=== PATIENT | female | born 1980 | race African-American/Black ===

== ENCOUNTER 2017-08-11 10:31 | Day surgery (SDC) | payer OTHER ==
[~2017-08-11 10:31] MED LIST: LACTATED RINGER'S 1,000 ML IV
[2017-08-11 12:49] LABS: ADD MAN DIFF? NO
[2017-08-11 12:55] LABS: WHITE BLOOD COUNT 7.2 10^3/ul (4.8-10.8)
[2017-08-11 12:55] LABS: BASOPHILS % 0.6 % (0.0-2.0); EOSINOPHILS # 0.1 10^3/ul (0.0-0.5); EOSINOPHILS % 0.8 % (0.0-7.0); LYMPHOCYTES # 2.2 10^3/ul (0.8-2.9); LYMPHOCYTES % 29.7 % (15.0-51.0); MEAN CORPUSCULAR HEMOGLOBIN 19.9 pg (29.0-33.0); MEAN CORPUSCULAR HGB CONC 29.2 g/dl (32.0-37.0); MEAN CORPUSCULAR VOLUME 68.2 fl (82.0-101.0); MEAN PLATELET VOLUME 10.1 fl (7.4-10.4); MONOCYTE # 0.7 10^3/ul (0.3-0.9); MONOCYTES % 9.3 % (0.0-11.0); NEUTROPHIL # 4.3 10^3/ul (1.6-7.5); NEUTROPHILS % 59.2 % (39.0-77.0); PLATELET COUNT 615 10^3/UL (140-415); RED BLOOD COUNT 3.52 10^6/ul (4.20-5.40); RED CELL DISTRIBUTION WIDTH 21.5 % (11.5-14.5)
[2017-08-11 13:01] LABS: HOLD TRANSMISSIONS 1
[2017-08-11] MEDS ORDERED: ONDANSETRON 4 MG INJ (13:23)
[2017-08-11] MEDS ORDERED: FENTAnyl 50 MCG/ML VIAL ×2 (13:23→15:48)
[2017-08-11] MEDS ORDERED: METOCLOPRAMIDE 10 MG INJ (13:23)
[2017-08-11] MEDS ORDERED: MIDAZOLAM 1 MG/ML 2 ML INJ (13:23)
[2017-08-11] MEDS ORDERED: PROPOFOL 20 ML (13:23)
[2017-08-11 13:24] LABS: ALANINE AMINOTRANSFERASE 52 IU/L (13-69); ALBUMIN 4.1 g/dl (3.3-4.9); ALBUMIN/GLOBULIN RATIO 1.46; ALKALINE PHOSPHATASE 69 IU/L (42-121); ANION GAP 15 (8-16); ASPARTATE AMINO TRANSFERASE 20 IU/L (15-46); BILIRUBIN,INDIRECT 0.1 mg/dl (0-1.1); BILIRUBIN,TOTAL 0.1 mg/dl (0.2-1.3); CARBON DIOXIDE 25 mmol/L (21-31); CHLORIDE 105 mmol/L (97-110); GLUCOSE 86 mg/dl (70-220); TOTAL PROTEIN 6.9 g/dl (6.1-8.1)
[2017-08-11] MEDS ORDERED: KETOROLAC 30 MG INJ (13:24)
[2017-08-11 13:25] LABS: INR 1.03; PROTIME 13.6 Sec (11.9-14.9); PT RATIO 1.1
[2017-08-11 13:27] LABS: SODIUM 141 mmol/L (135-144)
[2017-08-11 13:28] LABS: BLOOD UREA NITROGEN 12 mg/dl (7-20); CALCIUM 9.1 mg/dl (8.4-10.2); CREATININE 0.91 mg/dl (0.44-1.00); POTASSIUM 4.1 mmol/L (3.5-5.1)
[2017-08-11] MEDS ORDERED: DIPHENHYDRAMINE 50 MG INJ IV (14:00)
[2017-08-11] MEDS ORDERED: OXYCODONE/ACETAMINOPHEN (5/325) TAB PO (14:00)
[2017-08-11] MEDS ORDERED: HYDROmorphONE (0.2 MG/ML) 10ML SYG IV (14:00)
[2017-08-11] MEDS ORDERED: EPHEDrine SULFATE 50 MG/5 ML SYG (15:47)
[2017-08-11] MEDS: HYDROmorphONE (0.2 MG/ML) 10ML SYG IV ×4 (17:00→17:54)
[2017-08-11] MEDS: hydrALAzine 20 MG INJ IV (17:04)
[2017-08-11] MEDS: MEPERIDINE 25 MG INJ IV (17:11)
[2017-08-11] MEDS: ONDANSETRON 4 MG INJ IV (17:11)
[2017-08-11] MEDS: LABETALOL HCL 20MG INJ IV (17:33)
[2017-08-11] MEDS: OXYCODONE/ACETAMINOPHEN (5/325) TAB PO (19:03)
== END 2017-08-15 09:27 | disposition home or self-care (01) ==
LOC: SDS 10:31
DX: D25.0 Submucous leiomyoma of uterus (principal); I10 Essential (primary) hypertension
CPT/HCPCS: 58561; 80053; 85025; 85610; 85730; 86850; 86900; 86901; 86920